=== PATIENT | male | born 1960 | race African-American/Black ===

== ENCOUNTER 2020-02-11 18:44 | Emergency (ER) | payer OTHER ==
[~2020-02-11] VITALS: Ht 177.8 cm; Wt 70.0 kg
[2020-02-11 20:20] LABS: BASOPHILS % 0.3 % (0.0-2.0); EOSINOPHILS % 0.9 % (0.0-5.0); HEMATOCRIT. 38.5 % (42.0-52.0); HEMOGLOBIN. 12.7 g/dL (14.0-18.0); LYMPHOCYTES % 15.3 % (20.0-50.0); MEAN CORPUSCULAR HEMOGLOBIN 27.9 pg (28.0-32.0); MEAN CORPUSCULAR VOLUME 84.2 fL (80.0-94.0); MEAN PLATELET VOLUME 7.5 fl (7.4-10.4); NEUTROPHILS % 72.5 % (40.0-76.0); PLATELET 250 x1000/uL (130-400); RED BLOOD CELL COUNT 4.57 mill/uL (4.7-6.1); RED CELL DISTRIBUTION WIDTH 15.1 % (11.6-14.6)
[2020-02-11 20:24] LABS: CHLORIDE 109 mEq/L (98-107)
[2020-02-11 20:29] LABS: ETHANOL BLOOD < 10 mg/dL
[2020-02-11] MEDS ORDERED: LORAZEPAM 1MG TABLET PO ONE (20:30)
[2020-02-11 20:49] LABS: CLARITY URINE CLEAR (CLEAR); COLOR URINE YELLOW (YELLOW); KETONES URINE NEGATIVE (NEGATIVE); LEUKOCYTE ESTERASE URINE NEGATIVE (NEGATIVE); NITRITE URINE NEGATIVE (NEGATIVE); OCCULT BLOOD URINE TRACE (NEGATIVE); PH URINE 7.5 (4.5-8.0); PROTEIN URINE 2+ (NEGATIVE); SPECIFIC GRAVITY URINE 1.011 (1.005-1.030); UROBILINOGEN URINE 0.2 E.U./dL (0.2-1.0)
[2020-02-11 21:02] LABS: *AMPHETAMINES SCREEN URINE NEGATIVE (NEGATIVE); *BARBITURATES SCREEN URINE NEGATIVE (NEGATIVE); *BENZODIAZEPINES SCREEN URINE NEGATIVE (NEGATIVE); *COCAINE SCREEN URINE PRESUMTIVE POSITIVE (NEGATIVE)
[2020-02-11 21:03] LABS: CANNABINOID URINE SCREEN NEGATIVE (NEGATIVE); METHADONE URINE SCREEN NEGATIVE (NEGATIVE); OPIATES URINE SCREEN NEGATIVE (NEGATIVE); PHENCYCLIDINE URINE SCREEN PRESUMTIVE POSITIVE (NEGATIVE)
[2020-02-11] MEDS ORDERED: AMLODIPINE 5MG TABLET PO ONE (22:00)
[2020-02-12] MEDS ORDERED: LORAZEPAM 1MG TABLET PO ONE (00:45)
[2020-02-12] MEDS ORDERED: AMLODIPINE 5MG TABLET PO ONE (00:45)
[2020-02-12 01:50] VITALS: BP 177/109
== END 2020-02-12 02:48 | disposition home or self-care (01) ==
LOC: ER 18:44 → EDBD 18:44 → ER 02-12 02:48
DX: T40.5X1A Poisoning by cocaine, accidental (unintentional), initial encounter (principal); T40.991A Poisoning by other psychodysleptics [hallucinogens], accidental (unintentional), initial encounter; I16.0 Hypertensive urgency; F17.210 Nicotine dependence, cigarettes, uncomplicated; Y92.488 Other paved roadways as the place of occurrence of the external cause
CPT/HCPCS: 36415; 80053; 80305; 80307; 80320; 80329; 81003; 82962; 85025; 99285; G0480

== ENCOUNTER 2020-02-12 06:20 | Emergency (ER) | payer OTHER ==
[~2020-02-12] VITALS: Ht 180.3 cm; Wt 76.0 kg
[2020-02-12 06:37] VITALS: BP 146/102
[2020-02-12 08:40] LABS: BASOPHILS % 0.4 % (0.0-2.0); EOSINOPHILS % 0.4 % (0.0-5.0); HEMOGLOBIN. 14.1 g/dL (14.0-18.0); LYMPHOCYTES % 15.6 % (20.0-50.0); MEAN CORPUSCULAR VOLUME 84.5 fL (80.0-94.0); MEAN PLATELET VOLUME 7.5 fl (7.4-10.4); MONOCYTES % 9.3 % (2.0-8.0); NEUTROPHILS % 74.3 % (40.0-76.0); PLATELET 277 x1000/uL (130-400); RED BLOOD CELL COUNT 5.21 mill/uL (4.7-6.1)
[2020-02-12 08:46] LABS: CHLORIDE 109 mEq/L (98-107)
[2020-02-12 08:50] LABS: ETHANOL BLOOD < 10 mg/dL
[2020-02-12 08:58] LABS: *BARBITURATES SCREEN URINE NEGATIVE (NEGATIVE); *BENZODIAZEPINES SCREEN URINE NEGATIVE (NEGATIVE); *COCAINE SCREEN URINE PRESUMTIVE POSITIVE (NEGATIVE); METHADONE URINE SCREEN NEGATIVE (NEGATIVE); OPIATES URINE SCREEN NEGATIVE (NEGATIVE)
[2020-02-12 08:59] LABS: CANNABINOID URINE SCREEN NEGATIVE (NEGATIVE); PHENCYCLIDINE URINE SCREEN PRESUMTIVE POSITIVE (NEGATIVE)
[2020-02-12 09:00] LABS: *AMPHETAMINES SCREEN URINE NEGATIVE (NEGATIVE)
== END 2020-02-12 12:29 | disposition home or self-care (01) ==
LOC: ER 06:20
DX: F16.188 Hallucinogen abuse with other hallucinogen-induced disorder (principal); F14.188 Cocaine abuse with other cocaine-induced disorder; F15.10 Other stimulant abuse, uncomplicated; N28.9 Disorder of kidney and ureter, unspecified; F17.210 Nicotine dependence, cigarettes, uncomplicated; F10.20 Alcohol dependence, uncomplicated; Y90.0 Blood alcohol level of less than 20 mg/100 ml; Z59.0 Homelessness; Z71.6 Tobacco abuse counseling
CPT/HCPCS: 36415; 80053; 80305; 80320; 85025; 99283; 99406; G0480

== ENCOUNTER 2020-05-12 11:19 | Emergency (ER) | payer OTHER ==
[~2020-05-12] VITALS: Ht 172.7 cm; Wt 80.0 kg
[2020-05-12 12:31] LABS: BASOPHILS % 0.4 % (0.0-2.0); EOSINOPHILS % 0.4 % (0.0-5.0); HEMATOCRIT. 42.2 % (42.0-52.0); HEMOGLOBIN. 13.5 g/dL (14.0-18.0); LYMPHOCYTES % 11.1 % (20.0-50.0); MEAN CORPUSCULAR HEMOGLOBIN 27.4 pg (28.0-32.0); MEAN CORPUSCULAR VOLUME 85.8 fL (80.0-94.0); MEAN PLATELET VOLUME 7.7 fl (7.4-10.4); MONOCYTES % 8.4 % (2.0-8.0); NEUTROPHILS % 79.7 % (40.0-76.0); PLATELET 243 x1000/uL (130-400); RED BLOOD CELL COUNT 4.92 mill/uL (4.7-6.1); RED CELL DISTRIBUTION WIDTH 15.6 % (11.6-14.6)
[2020-05-12 12:38] LABS: CHLORIDE 108 mEq/L (98-107)
[2020-05-12 12:41] LABS: ETHANOL BLOOD < 10 mg/dL
[2020-05-12] MEDS ORDERED: LORAZEPAM 2MG/ML CPJ IM PRN (13:00)
[2020-05-12] MEDS ORDERED: DIPHENHYDRAMINE 50MG/ML VIAL IM PRN (13:00)
[2020-05-12] MEDS ORDERED: HALOPERIDOL LACTATE 5MG/ML VIAL IM ONE (13:00)
[2020-05-12 19:48] LABS: CLARITY URINE CLEAR (CLEAR); COLOR URINE YELLOW (YELLOW); KETONES URINE NEGATIVE (NEGATIVE); LEUKOCYTE ESTERASE URINE NEGATIVE (NEGATIVE); NITRITE URINE NEGATIVE (NEGATIVE); OCCULT BLOOD URINE TRACE (NEGATIVE); PROTEIN URINE 2+ (NEGATIVE); SPECIFIC GRAVITY URINE 1.014 (1.005-1.030); UROBILINOGEN URINE 0.2 E.U./dL (0.2-1.0)
[2020-05-12 20:37] LABS: *AMPHETAMINES SCREEN URINE NEGATIVE (NEGATIVE); *BARBITURATES SCREEN URINE NEGATIVE (NEGATIVE); *BENZODIAZEPINES SCREEN URINE NEGATIVE (NEGATIVE); *COCAINE SCREEN URINE PRESUMTIVE POSITIVE (NEGATIVE); METHADONE URINE SCREEN NEGATIVE (NEGATIVE); OPIATES URINE SCREEN NEGATIVE (NEGATIVE)
[2020-05-12 20:38] LABS: CANNABINOID URINE SCREEN NEGATIVE (NEGATIVE); PHENCYCLIDINE URINE SCREEN PRESUMTIVE POSITIVE (NEGATIVE)
[2020-05-12] MEDS ORDERED: AMLODIPINE 10MG TABLET PO ONE (22:00)
[2020-05-13] MEDS ORDERED: HYDRALAZINE 20MG/ML VIAL IV ONE (00:15)
[2020-05-13 01:42] VITALS: BP 129/73
== END 2020-05-13 02:06 | disposition short-term general hospital (02) ==
LOC: ER 11:19 → CANBEDREQ 05-13 11:38
DX: R55 Syncope and collapse (principal); R94.31 Abnormal electrocardiogram [ECG] [EKG]; I10 Essential (primary) hypertension; F16.10 Hallucinogen abuse, uncomplicated; F17.210 Nicotine dependence, cigarettes, uncomplicated
CPT/HCPCS: 36415; 70450; 71045; 80053; 80305; 80307; 80320; 80329; 81003; 82962; 83880; 84484; 85025; 87426; 93005; 96372; 96374; 99285; J0360; J1200; J1630; J2060; G0480

== ENCOUNTER 2020-05-19 10:06 | Emergency (ER) | payer OTHER ==
[~2020-05-19] VITALS: Ht 172.7 cm; Wt 73.0 kg
[2020-05-19] MEDS ORDERED: IBUPROFEN 400MG TABLET PO ONE (10:30)
[2020-05-19 10:52] LABS: HEMATOCRIT. 43.5 % (42.0-52.0); HEMOGLOBIN. 14.2 g/dL (14.0-18.0); MEAN CORPUSCULAR HEMOGLOBIN 27.8 pg (28.0-32.0); MEAN CORPUSCULAR VOLUME 84.8 fL (80.0-94.0); MEAN PLATELET VOLUME 8.1 fl (7.4-10.4); PLATELET 224 x1000/uL (130-400); RED BLOOD CELL COUNT 5.13 mill/uL (4.7-6.1); RED CELL DISTRIBUTION WIDTH 15.8 % (11.6-14.6)
[2020-05-19 10:59] LABS: CHLORIDE 106 mEq/L (98-107)
[2020-05-19 11:03] LABS: ETHANOL BLOOD < 10 mg/dL
[2020-05-19 11:14] LABS: PLATELET ESTIMATE NORMAL
[2020-05-19 15:20] VITALS: BP 140/85
== END 2020-05-19 16:33 | disposition home or self-care (01) ==
LOC: ER 10:06
DX: F19.10 Other psychoactive substance abuse, uncomplicated (principal); N28.9 Disorder of kidney and ureter, unspecified; R45.6 Violent behavior; F16.20 Hallucinogen dependence, uncomplicated; I10 Essential (primary) hypertension; E11.9 Type 2 diabetes mellitus without complications
CPT/HCPCS: 36415; 80053; 80320; 85025; 99283; G0480

== ENCOUNTER 2020-06-09 02:35 | Emergency (ER) | payer OTHER ==
[~2020-06-09] VITALS: Ht 180.3 cm; Wt 80.0 kg
[2020-06-09] MEDS ORDERED: ACETAMINOPHEN 325MG TABLET PO ONE (03:30)
[2020-06-09 03:50] VITALS: BP 176/123
== END 2020-06-09 04:32 | disposition home or self-care (01) ==
LOC: ER 02:35
DX: M25.552 Pain in left hip (principal); I10 Essential (primary) hypertension; F16.10 Hallucinogen abuse, uncomplicated
CPT/HCPCS: 99283